=== PATIENT | female | born 1990 | race Caucasian/White ===

== ENCOUNTER 2024-09-22 08:34 | Outpatient (CLI) | payer OTHER | END 2024-09-22 09:15 | disposition home or self-care (01) | LOC: NST 08:34 | PROVIDERS: ATTEND Obstetrics & Gynecology Gynecology | DX: Z34.83 Encounter for supervision of other normal pregnancy, third trimester (principal) ==

== ENCOUNTER 2024-09-26 08:36 | Outpatient (CLI) | payer OTHER ==
[2024-09-26] MEDS ORDERED: OBSTETRIX EC C1 EAC1 PO (11:45)
== END 2024-09-26 08:41 | disposition home or self-care (01) ==
LOC: NST 08:36
PROVIDERS: ATTEND Obstetrics & Gynecology
DX: Z34.83 Encounter for supervision of other normal pregnancy, third trimester (principal)

== ENCOUNTER 2024-09-26 11:19 | Inpatient (IN) | payer OTHER ==
[~2024-09-26] VITALS: Ht 170.2 cm; Wt 73.9 kg
[2024-09-26] MEDS ORDERED: OBSTETRIX EC C1 EAC1 PO (11:45)
[2024-09-26 11:47] LABS: HEMATOCRIT 36.9 % (36.0-45.00); HEMOGLOBIN 12.2 g/dL (12.0-15.00); MEAN CELL VOLUME 88.8 fL (80.00-100.00); MEAN CORPUSCULAR HEMOGLOBIN 29.3 pg (27.00-32.0); MEAN CORPUSCULAR HGB CONC 32.9 g/dl (32.0-36.0); PLATELET COUNT 180 K/uL (150-450); RED BLOOD COUNT 4.16 M/uL (4.00-6.00); RED CELL DISTRIBUTION WIDTH 13.3 % (11.5-14.5)
[2024-09-26 12:02] LABS: PH,URINE 6.5 (5.0-8.0); URINE APPEARANCE Clear; URINE BILIRRUBIN Negative (NEGATIVE); URINE BLOOD Negative; URINE COLOR Yellow; URINE GLUCOSE Negative (NEGATIVE); URINE KETONE Negative (NEGATIVE); URINE LEUKOCYTE Trace; URINE NITRATE Negative; URINE PROTEIN Negative (NEGATIVE); URINE UROBILINOGEN 0.2 E.U./dl
[2024-09-26 12:06] LABS: URINE BACTERIA 1166.3 uL (0.0-1933); URINE EPITHELIAL CELLS 30.5 uL (0.0-38.8); URINE RBC 4.1 uL (0.0-20.8)
[2024-09-26 12:17] LABS: INR 0.95; PARTIAL THROMBOPLASTIN TIME 25.6 SECONDS (22.0-34.0); PROTHROMBIN TIME 10.4 SECONDS (9.0-11.5)
[2024-09-26 12:23] LABS: BILIRUBIN TOTAL 0.42 mg/dL (0.3-1.2); CALCIUM 9.9 mg/dL (8.5-10.1); CREATININE SERUM 0.59 mg/dL (0.55-1.02); GFR 115.33; GLOBULINA 3.6 G/DL (2.4-3.5); POTASSIUM 4.81 mEq/L (3.5-5.1); TOTAL PROTEIN 6.6 gm/dL (6.4-8.2)
[2024-10-01 07:55] VITALS: BP 107/76
[2024-10-01] MEDS ORDERED: METOCLOPRAMIDE HCL 5 MG/ML VIAL ONE (08:33)
[2024-10-01] MEDS ORDERED: CEFAZOLIN SODIUM 1,000 MG VIAL ONE (08:33)
[2024-10-01] MEDS ORDERED: OXYTOCIN 10 UNITS/ML VIAL ONE ×2 (08:33→11:37)
[2024-10-01] MEDS ORDERED: ERYTHROMYCIN BASE OPHT 1GM EACH TUBE OP ONE (08:33)
[2024-10-01] MEDS ORDERED: CEFAZOLIN SODIUM 1,000 MG VIAL IV SCH (09:00)
[2024-10-01] MEDS ORDERED: RINGERS SOLUTION,LACTATED 1,000 ML IV SCH (09:00)
[2024-10-01] MEDS ORDERED: METOCLOPRAMIDE HCL 5 MG/ML VIAL IV SCH (09:00)
[2024-10-01] MEDS ORDERED: MORPHINE SULFATE 4 MG/ML CARTRIDGE IV SCH (09:54)
[2024-10-01] MEDS ORDERED: OXYTOCIN 1,000 ML IV ONE (10:00)
[2024-10-01] MEDS ORDERED: DOCUSATE SODIUM 100MG CAP PO NR (11:00)
[2024-10-01] MEDS ORDERED: KETOROLAC TROMETHAMINE 30 MG VIAL ONE (11:15)
[2024-10-01] MEDS ORDERED: KETOROLAC TROMETHAMINE 30 MG VIAL IV SCH (12:00)
[2024-10-01] MEDS ORDERED: GABAPENTIN 300 MG CAPSULE PO SCH (13:00)
[2024-10-01 13:29] VITALS: BP 119/73
[2024-10-01 15:00] VITALS: BP 116/68
[2024-10-01 17:53] LABS: HEMATOCRIT 31.7 % (36.0-45.00); HEMOGLOBIN 10.5 g/dL (12.0-15.00); MEAN CORPUSCULAR HEMOGLOBIN 29.2 pg (27.00-32.0); MEAN CORPUSCULAR HGB CONC 33.2 g/dl (32.0-36.0); PLATELET COUNT 163 K/uL (150-450); RED CELL DISTRIBUTION WIDTH 13.1 % (11.5-14.5)
[2024-10-01] MEDS ORDERED: ACETAMINOPHEN 500 MG GEL..CAP PO SCH (18:00)
[2024-10-01 19:25] VITALS: BP 102/69
[2024-10-02 00:56] VITALS: BP 106/66; O2SAT 99
[2024-10-02 05:35] VITALS: BP 109/72
[2024-10-02 07:48] VITALS: BP 108/68; O2SAT 98
[2024-10-02] MEDS ORDERED: DOCUSATE SODIUM 100MG CAP PO SCH (09:00)
[2024-10-02] MEDS ORDERED: PNV,CALCIUM 72/IRON/FOLIC ACID 1 TAB TABLET PO SCH (09:00)
[2024-10-02] MEDS ORDERED: SIMETHICONE 125 MG CAPSULE PO SCH (09:00)
[2024-10-02] MEDS ORDERED: IBUprofen 600 MG TABLET PO SCH (12:00)
[2024-10-02 15:25] VITALS: BP 112/76; O2SAT 99
[2024-10-03] VITALS: BP 105/68
[2024-10-03 08:26] VITALS: BP 117/73; O2SAT 99
== END 2024-10-03 11:36 | disposition home or self-care (01) | DRG 788 ==
LOC: OB/GYN 10-01 08:10 → LDR 10-01 08:10 → OB/GYN 10-01 10:00
PROVIDERS: Obstetrics & Gynecology; ADMIT Obstetrics & Gynecology Gynecology; ATTEND Obstetrics & Gynecology Gynecology
PROC: 4A1HXCZ Monitoring of Products of Conception, Cardiac Rate, External Approach (ICD-10-PCS; 2024-10-01)
PROC: 10D00Z1 Extraction of Products of Conception, Low, Open Approach (ICD-10-PCS; principal; 2024-10-01 08:00)
DX: O32.1XX0 Maternal care for breech presentation, not applicable or unspecified (principal); Z3A.38 38 weeks gestation of pregnancy; Z37.0 Single live birth